=== PATIENT | female | born 1985 | race Caucasian/White ===

== ENCOUNTER 2025-01-21 19:15 | Emergency (ER) | payer MEDICAID ==
[~2025-01-21] VITALS: Ht 172.7 cm; Wt 91.4 kg
[2025-01-21 19:18] VITALS: TEMP 98.4
[2025-01-21] MEDS: KETOROLAC 30 MG/ML 1 ML VIAL IM ONE (21:47)
[2025-01-21] MEDS ORDERED: FAMOTIDINE 20 MG TAB PO ONE (23:15)
[2025-01-22] VITALS: BP 102/61
[2025-01-22 00:15] VITALS: O2SAT 100
== END 2025-01-22 00:20 | disposition home or self-care (01) ==
LOC: M ED 19:15
DX: M18.12 Unilateral primary osteoarthritis of first carpometacarpal joint, left hand (principal); Z88.6 Allergy status to analgesic agent; Z88.5 Allergy status to narcotic agent
CPT/HCPCS: 73090; 73130; 73200; 96372; 99284; J1885